=== PATIENT | male | born 1975 | race African-American/Black ===

== ENCOUNTER 2017-06-21 07:21 | Outpatient (CLI) | END 2017-06-21 07:22 | disposition left against medical advice (07) | LOC: AMBL 07:21 | PROVIDERS: ATTEND Emergency Medicine | DX: Z04.1 Encounter for examination and observation following transport accident (principal); V89.2XXA Person injured in unspecified motor-vehicle accident, traffic, initial encounter ==

== ENCOUNTER 2018-10-18 15:38 | Outpatient (CLI) | END 2018-10-18 15:39 | disposition home or self-care (01) | LOC: RHC-LAB 15:38 | PROVIDERS: ATTEND Nurse Practitioner Family | DX: Z00.00 Encounter for general adult medical examination without abnormal findings (principal); Z76.89 Persons encountering health services in other specified circumstances | CPT/HCPCS: 36415; 80053; 80061; 84443; 85025 ==